=== PATIENT | female | born 1995 | race Caucasian/White ===

== ENCOUNTER 2024-03-05 20:12 | Emergency (ER) | payer OTHER, SELFPAY ==
--- NOTE | ~2024-03-05 | XR_ITS ---
EXAMINATION: XR ABDOMEN KUB CLINICAL INDICATION: Constipation. COMPARISON: None available. TECHNIQUE: AP view of the abdomen. FINDINGS: The bowel gas pattern is normal with no evidence of ileus or obstruction. There is abundant stool throughout the colon. No unusual soft tissue calcifications are noted. The bones are unremarkable. XR/XR KUB IMPRESSION: Nonobstructive bowel gas pattern. Abundant stool throughout the colon. Electronically signed by: Fredrick Cabezas DO 03/05/2024 10:57 PM [facility]
[2024-03-05 20:16] VITALS: BP 127/74; PULSE 80; RESP 16; TEMP 36.8; O2SAT 97; BMI 31.3
--- NOTE | 2024-03-05 20:16 | ED_ITS ---
HPI - General Adult General Chief complaint: General Medical Stated complaint: Constipated Time Seen by Provider: 03/06/24 00:24 Source: patient Mode of arrival: ambulatory Limitations: no limitations History of Present Illness ED Provider: timur HPI narrative: Patient's history of chronic constipation comes here for constipation for last 3 days unable to move her bowels passing gas tried MiraLax and prunes without much success requesting Fleet enema no nausea no vomiting Related Data Previous Rx's ?Medication ?Instructions ?Recorded bisacodyl 5 mg tablet,delayed 10 mg (2 x 5 mg) PO BEDTIME PRN 03/06/24 release (Dulcolax (bisacodyl)) constipation #30 tabs polyethylene glycol 3350 17 17 g PO BID #510 grams 03/06/24 gram/dose oral powder (Miralax) Allergies Allergy/AdvReac Type Severity Reaction Status Date / Time No Known Allergies Allergy Verified 03/05/24 20:18 Review of Systems Review of Systems: Yes all other systems are reviewed and are negative [facility] Social History Social History Advance Directives: No Advance Directives Information Provided: No Do you have a plan to hurt others: No Plan Physical Exam ED Vital Signs: Vital Signs - 24 hr 03/05/24 20:16 03/06/24 00:25 Temperature 98.3 F 98.6 F Pulse Rate 80 70 Respiratory Rate 16 20 Blood Pressure 127/74 136/87 Pulse Oximetry 97 99 Oxygen Delivery Method Room Air Room Air BMI result Body Mass Index 31.3 Appearance: Alert. Oriented X3. No acute distress. Eyes: PERRLA, No Nystagmus ENT: Pharynx normal. Oral Mucosa moist Neck: Normal inspection. Neck supple. CVS: Normal heart rate and rhythm. Pulses normal. Respiratory: No respiratory distress. Equal air entry bilateral, Abdomen: Soft and nontender. Bowel sounds are present, no mass palpable, no CVA tenderness Skin: Skin warm and dry. Normal skin color. Normal skin turgor. rectal: Soft stool no impaction Extremities: No lower extremity edema. No calf tenderness Neuro: Oriented X 3. Course Course Course Narrative: This is an RME: Additional HPI, ROS, PE not included below will be deferred to primary provider. RME assessment and note performed by: Charlene Saha PA-C This is a [id number]-female who presents to the ER with complaints of constipation. Reports last bowel movement was 3 days ago. Reports she typically moves her bowels twice per day. Reports that she is passing gas. She does report that she started taking control and spironolactone for PCOS in September. She admits that she does not stay well hydrated while on these medications. She states that she feels as if she needs to have a bowel movement in that the stool is right there however states it is very hard. She has tried laxatives, gummies, other medications without any relief. Plan: KUB Medical Decision Making Medical Decision Making MDM Narrative: Patient with constipation will give a mg magnesium Dulcolax in the rectal exam/Fleet enema after rectal exam patient did have a small bowel movement Discharge Plan Discharge Clinical Impression: Constipation Patient Disposition: Home, Self-Care Instructions: Constipation (ED) Additional Instructions: Drink plenty of fluids Take stool softener as prescribed You may take MiraLax twice a day for bowel movement Prescriptions: New polyethylene glycol 3350 [Miralax] 17 gram/dose powder 17 g PO BID Qty: 510 0RF bisacodyl [Dulcolax (bisacodyl)] 5 mg tablet,delayed release (DR/EC) 10 mg PO BEDTIME PRN (Reason: constipation) Qty: 30 0RF Print Language: Faroese
[2024-03-06 00:25] VITALS: BP 136/87; PULSE 70; RESP 20; TEMP 37; O2SAT 99
[2024-03-06] MEDS: Milk of Magnesia 30 ML ORAL.SUSP PO (01:25)
[2024-03-06] MEDS: bisacodyL 5 MG TABLET.DR 10 MG PO (01:25)
[2024-03-06] MEDS: Sodium Phosphate,Mono-Dibasic 133 ML ENEMA PR (01:26)
--- NOTE | 2024-03-06 01:28 | PC.NURSE ---
Reviewed discharge instruction with pt , pt verbalized understanding, no sign of distress.
[2024-03-06 01:34] VITALS: BP 136/87; PULSE 70; RESP 20; TEMP 37; O2SAT 96
== END 2024-03-06 01:35 | disposition home or self-care (01) ==
PROVIDERS: Emergency Provider Internal Medicine
DX: K59.00 Constipation, unspecified (principal)
CPT/HCPCS: 74018; 99284

== ENCOUNTER 2024-10-04 08:40 | Emergency (ER) | payer OTHER, SELFPAY ==
--- NOTE | ~2024-10-04 | CT_ITS ---
CLINICAL HISTORY: new onset posterior headache ear pain x2 wks CT head without contrast. COMPARISON: None FINDINGS: The visualized paranasal sinuses are clear. The visualized paranasal sinuses are clear. No calvarial fracture. Several subcutaneous partially calcified nodules present within the scalp consistent with sebaceous cysts. No erosion into the underlying bone. No evidence for mass or mass effect. No intracranial hemorrhage or abnormal extra-axial fluid collection. No CT evidence of acute infarct. No evidence of hydrocephalus. The basilar cisterns are patent. Posterior fossa appears unremarkable. IMPRESSION: 1. No acute intracranial findings. This document has been electronically signed by: Jevon Crespo MD on 10/04/2024 13:00:59
--- NOTE | 2024-10-04 08:52 | PC.NURSE ---
expect called in from Health MD: pt experiencing R ear pain and Headache since September 12 despite medications .
[2024-10-04 08:56] VITALS: BP 139/92; PULSE 76; RESP 18; TEMP 36.6; O2SAT 98; BMI 31.1
--- NOTE | 2024-10-04 11:06 | ED_ITS ---
HPI - General Adult General Chief complaint: General Medical Stated complaint: ear infection Time Seen by Provider: 10/04/24 11:05 Source: patient Mode of arrival: ambulatory Limitations: no limitations History of Present Illness ED Provider: sinai vasquez np HPI narrative: Patient is a 29-year-old female who presents emergency department for evaluation. She reports that over the past few weeks she has been battling ear infections. States that initially started on the left, she was given a 7 day course of Augmentin as well as Cortisporin. She elected not to use the Cortisporin drops that she felt things would get better with just the Augmentin alone she states for 3 days she was feeling really good but after day 5 the left ear began feeling worse in her right ear began hurting. She re-presented back to urgent Care, was given a 3 day course of prednisone 40 mg, doxycycline a 10 day course, and a 1 day course of Valtrex as they thought she ?might have shingles but without a rash?. She does state that she was getting better up until yesterday her last day of the doxycycline when she felt her symptoms were getting worse again. She presented back to urgent care was advised to come to the emergency department today for imaging. Related Data Previous Rx's ?Medication ?Instructions ?Recorded bisacodyl 5 mg tablet,delayed 10 mg (2 x 5 mg) PO BEDTIME PRN 03/06/24 release (Dulcolax (bisacodyl)) constipation #30 tabs polyethylene glycol 3350 17 17 g PO BID #510 grams 03/06/24 gram/dose oral powder (Miralax) fluticasone propionate 50 1 spray intranasal Q12H #16 grams 10/04/24 mcg/actuation nasal spray,suspension (Children's Flonase Allergy Relief) loratadine 10 mg tablet 10 mg PO DAILY #14 tabs 10/04/24 oxymetazoline 0.05 % nasal spray 2 spray intranasal Q12H 2 days #15 10/04/24 (Afrin (oxymetazoline)) mL Allergies Allergy/AdvReac Type Severity Reaction Status Date / Time No Known Allergies Allergy Verified 10/04/24 08:58 Review of Systems Review of Systems: Yes all other systems are reviewed and are negative [facility] Past Medical History Attestation statement: The following information was validated with the patient. Source: old records reviewed Social History Social History Substance Use Type: Marijuana Physical Exam ED Vital Signs: Vital Signs - 24 hr 10/04/24 08:56 10/04/24 11:29 10/04/24 14:17 Temperature 98 F Pulse Rate 76 73 71 Respiratory Rate 18 16 18 Blood Pressure 139/92 H 133/84 130/96 H Pulse Oximetry 98 99 96 Oxygen Delivery Method Room Air Room Air Room Air 10/04/24 14:39 Temperature 98.2 F Pulse Rate 71 Respiratory Rate 18 Blood Pressure 130/96 H Pulse Oximetry 96 Oxygen Delivery Method Room Air BMI result Body Mass Index 31.1 Appearance: Alert.?Oriented to person, place and time. No acute distress.?Normal affect. Eyes: Pupils equal, round and reactive to light.? ENT: Pharynx normal.??Right TM with very minimal erythema, no bulging, no opacity. Left TM is difficult to visualize due to cerumen in the external c anal. No mastoid tenderness bilaterally. Neck: Normal inspection.? Neck supple.??Full range of motion. No cervical adenopathy. No nuchal rigidity CVS: Heart sounds normal. Normal heart rate and rhythm.? Pulses normal.?? Respiratory: No respiratory distress.? Lung sounds clear to auscultation bilaterally?? Abdomen: Soft and non-tender. Normoactive bowel sounds. Skin: Skin warm and dry.? Normal skin color. Extremities: No lower extremity edema.? Neuro: Moves all extremities spontaneously. Sensation intact bilaterally. CN II- XII intact. No focal neuro deficits. Ambulates with normal steady gait. Medical Decision Making Medical Decision Making MDM Narrative: Patient is a 29-year-old female no reported past medical history who presents emergency department for evaluation of bilateral ear pain and headache as per HPI. Overall she is well-appearing, nontoxic, afebrile. She is without signs systemic toxicity. She has no nuchal rigidity, negative Kernig and Brudzinski sign, do not suspect meningitis. On evaluation, TM on the right shows a very mild erythema but no bulging or opacity, left TM is normal. There was no mastoid tenderness. No external swelling. No cervical adenopathy. Has full range of motion to her neck. I do not suspect acute mastoiditis right suspect acute otitis media at this time that would warrant additional course of antibiotic. Posterior oropharynx is normal. I will obtain CT of the head to exclude intracranial mass given the onset of this headache over the past few weeks. If unremarkable, given the persistence of the symptoms, she may benefit from ENT evaluation, consider trialing course of antihistamine/Flonase in the event that this is an allergy type presentation. Differential Diagnosis Differential Diagnoses: The differential diagnosis associated with the presentation includes (See narrative above) Admission/Observation Consideration of admission/observation: Escalation of care including admission/observation considered Independent Interpretation I performed an independent interpretation of an: CT Scan (No intracranial mass, no ICH) Radiology Impression Discussion of test interpretation with radiology: I have reviewed the radiologist's reading. Radiologist Impression: CT head without contrast. COMPARISON: None FINDINGS: The visualized paranasal sinuses are clear. The visualized paranasal sinuses are clear. No calvarial fracture. Several subcutaneous partially calcified nodules present within the scalp consistent with sebaceous cysts. No erosion into the underlying bone. No evidence for mass or mass effect. No intracranial hemorrhage or abnormal extra-axial fluid collection. No CT evidence of acute infarct. No evidence of hydrocephalus. The basilar cisterns are patent. Posterior fossa appears unremarkable. IMPRESSION: 1. No acute intracranial findings. External Record Review External record reviewed: Outpatient record Prescription Management I considered prescription management with: Antibiotic (See narrative above) and Other (See narrative above) Discharge Plan Discharge Clinical Impression: Headache, Acute pain of both ears Patient Disposition: Home, Self-Care Instructions: Acute Headache (ED), Earache (ED) Additional Instructions: On examination today you do not have findings consistent with an inner ear infection nor an external ear/ear canal infection that would warrant antibiotics or ear drops at this time. Head CT was obtained while in the emergency department, does not show any abnormal findings which is reassuring. Given the duration of your symptoms, I think it would be of benefit for you to follow-up with an Ear Nose Throat specialist for further evaluation You may need to speak with your primary care doctor for a referral depending on your insurance plan [facility] - [address] [place] [address] [place] [address] - [phone] In the interim, I suggest trialing use of an antihistamine/allergy medication to see if this may help with your symptoms; I have sent a few prescriptions to the pharmacy The 1st is Claritin to be taken orally daily, start today. The 2nd is Afrin nasal spray, start today this is only to be taken for 2 days then you must must discontinue the usage The 3rd is Flonase nasal spray, start today intake twice daily over the next 2 weeks You can take ibuprofen 200 mg, 3 tablets (600mg) every 6-8 hours as needed for pain, in addition to Tylenol 500 mg, 2 tablets (1,000mg) every 4-6 hours as needed for pain, but not to exceed 3 doses daily (3,000mg).? Prescriptions: New loratadine 10 mg tablet 10 mg PO DAILY Qty: 14 0RF oxymetazoline [Afrin (oxymetazoline)] 0.05 % spray,non-aerosol 2 spray intranasal Q12H 2 Days Qty: 15 0RF fluticasone propionate [Children's Flonase Allergy Rlf] 50 mcg/actuation spray,suspension 1 spray intranasal Q12H Qty: 16 0RF Rx Instructions: administer into each nostril No Action polyethylene glycol 3350 [Miralax] 17 gram/dose powder 17 g PO BID Qty: 510 0RF bisacodyl [Dulcolax (bisacodyl)] 5 mg tablet,delayed release (DR/EC) 10 mg PO BEDTIME PRN (Reason: constipation) Qty: 30 0RF Referrals: Segundo Figueroa MD [Primary Care Provider] - Interventions: ED Discharge Assessment Last Done: 10/04/24 14:39 Discharge Date/Time: 10/04/24 14:40 Print Language: South African
[2024-10-04 11:29] VITALS: BP 133/84; PULSE 73; RESP 16; O2SAT 99
--- NOTE | 2024-10-04 12:17 | PC.NURSE ---
PAtient A&O x 3. Patient presents to ED c/o bilateral ear pain and migraine. Pain rated 5/10 non radiating. Ear pain started approx 2 weeks in the right ear and then become bilateral ear pain. Patient visited urgent care completed ABX with no effect patient started on new ABX and completed that as well. Patient visited the urgent care this AM and was referred here for imaging. Denies SOB. Denies injury to ears. No vision changes, Eyes PERRLA. Denies N/V. VSS and up to date. Patient currently waiting Head CT wo contrast. Plan of care on going.
[2024-10-04 14:17] VITALS: BP 130/96; PULSE 71; RESP 18; O2SAT 96
[2024-10-04 14:39] VITALS: BP 130/96; PULSE 71; RESP 18; TEMP 36.8; O2SAT 96
== END 2024-10-04 14:40 | disposition home or self-care (01) ==
PROVIDERS: Emergency Provider Emergency Medicine; PCP Internal Medicine
DX: R51.9 Headache, unspecified (principal); H92.03 Otalgia, bilateral
CPT/HCPCS: 70450; 99284

== ENCOUNTER → 2024-10-04 12:12 | Outpatient (BNV) | payer OTHER, SELFPAY | PROVIDERS: Emergency Provider Emergency Medicine; PCP Internal Medicine; Visit Provider Radiology Diagnostic Radiology | DX: H92.09 Otalgia, unspecified ear (principal) | CPT/HCPCS: 70450 ==

== ENCOUNTER 2024-11-11 10:13 | Outpatient (AMB) | payer OTHER, SELFPAY ==
--- NOTE | 2024-11-11 10:17 | A.OFFVIS_ITS ---
Vital Signs 11/11/24 10:21 Height 5 ft 4 in Weight 204 lb 2.369 oz BMI 35.0 BP 130/59 L Blood Pressure Location Lt brachial Position Sitting Pulse 87 Intake Visit Reasons: sebaceous cyst scalp Intake Note: Patient seen at [facility] and referred for cyst on Right parietal scalp. Present for yrs. Patient c/o: aches at times. Technical Services Rep Required: No Accompanied by: mother Irma Allergies No Known Allergies Allergy (Verified 11/11/24 10:23) HPI HPI sebaceous cyst scalp: Details: [age] year old female referred for a scalp mass. She says that she has this for about 5 years. However, she feels that this has been increasing in size and has been causing significant discomfort. She wants this removed. She says she has not noticed this to drain or gets swollen. [facility] Medical History ACL (anterior cruciate ligament) rupture Scalp cyst Social History Substance Use Type: Marijuana Review of Systems Const Denies chills and Denies fever(s) Card Denies chest pain, Denies dyspnea and Denies dyspnea on exertion Resp Denies cough, Denies dyspnea and Denies dyspnea on exertion GI Denies hematochezia and Denies change in bowel habits Denies hematuria Musc Denies back pain and Denies limited range of motion Neuro Denies focal weakness and Denies convulsions Psych Denies depression and Denies mood swings Physical Exam Vital Signs: Last Vital Signs Pulse 87 11/11/24 10:21 BP 130/59 L 11/11/24 10:21 BMI result Body Mass Index 35.0 Const General: comfortable and no acute distress Orientation/consciousness: patient oriented x3 HEENT Other: Scalp mass, likely lipoma versus a cyst on the parietal area a little to the right, about 2.9 cm in diameter, well-defined and mobile Neck Neck: Yes no lymphadenopathy Resp Auscultation: clear to auscultation bilaterally Cardio Rhythm: regular rhythm GI Palpation (GI): Soft to palpation, nontender and no guarding Neuro General: patient oriented x3 Assessment & Plan Assessment & Plan (1) Scalp cyst: Code(s): L72.9 - Follicular cyst of the skin and subcutaneous tissue, unspecified Category: Medical Plan: This is probably a lipoma versus a cyst on her scalp. She wants to proceed with excision. I explained the technique of excision under local anesthesia. I reviewed the risks including but not limited to bleeding and infections, as well as the benefits and alternatives. I also explained to her what to expect postoperatively. She says she understands and wants to proceed. This will be done in the office on her next visit. Coding Level of Care Code New Pt Level 3 (87691) Diagnoses Scalp cyst L72.9
[2024-11-11 10:21] VITALS: BP 130/59; PULSE 87; BMI 35.0
== END 2024-11-11 10:37 | disposition home or self-care (01) ==
LOC: HO.HGS 10:14
PROVIDERS: PCP Internal Medicine; Visit Provider Surgery
DX: L72.9 Follicular cyst of the skin and subcutaneous tissue, unspecified (principal)
CPT/HCPCS: 99203

== ENCOUNTER → 2024-11-11 10:13 | Outpatient (BNVA) | payer OTHER, SELFPAY | PROVIDERS: PCP Internal Medicine; Visit Provider Surgery | DX: L72.9 Follicular cyst of the skin and subcutaneous tissue, unspecified (principal) | CPT/HCPCS: 99202 ==